=== PATIENT | female | born 1970 | race American Indian/Alaskan Native ===

== ENCOUNTER 2019-09-14 08:52 | Outpatient (CLI) | payer MEDICARE ==
--- NOTE | 2019-09-19 10:57 | Mammography Report ---
DIGITAL SCREENING MAMMOGRAM WITH CAD, 09/14/2019 INDICATION: Routine screening mammography. TECHNIQUE: Digital bilateral 2D mammography was obtained in the craniocaudal and mediolateral obliq ue projections. This examination was interpreted with the benefit of Computer-Aided Detection analysi s. COMPARISON: 05/05/2015 FINDINGS: Breast Density: The breasts are heterogeneously dense, which may obscure small masses. There is no evidence of dominant mass, suspicious calcifications or architectural distortion in eithe r breast. IMPRESSION: No mammographic evidence of malignancy. Follow up recommendation: Routine yearly BI-RADS Category 1: Negative. A "normal" or negative report should not discourage follow up or biopsy of a clinically significant f inding. A written summary of these findings will be mailed to the patient. The patient will be entered into a mammography reporting system which will generate a reminder letter for the patient's next appointmen t at the appropriate interval. The [employer] recommends yearly mammograms starting at age 40 and continuing as l ofelia as a woman is in good health. Breast MRI is recommended for women with an approximate 20-25% or greater lifetime risk of breast cancer, including women with a strong family history of breast or ova pierre cancer or who have been treated for Hodgkin's disease. Signer Name: Deo Clark MD Signed: 09/19/2019 10:52 AM Workstation Name: [id number]
== END 2019-09-14 08:53 | disposition home or self-care (01) ==
LOC: SPVWC 08:52
PROVIDERS: ATTEND Family Medicine
DX: Z12.31 Encounter for screening mammogram for malignant neoplasm of breast (principal)
CPT/HCPCS: 77067

== ENCOUNTER 2020-10-08 10:18 | Outpatient (CLI) | payer MEDICARE, MEDICAID ==
--- NOTE | 2020-10-08 15:37 | Cat Scan Report ---
CT ABDOMEN AND PELVIS WITH CONTRAST HISTORY: MYCOSIS FUNGOIDES,EXTRANODAL AND SOLID ORGAN SITES COMPARISON: None. TECHNIQUE: Axial CT images were obtained through the abdomen and pelvis after 100 cc of IV contrast. Sagittal and coronal reformatted images. All CT scans at this location are performed using CT dose re duction for ALARA by means of automated exposure control. FINDINGS: CT ABDOMEN: Lung Bases: Clear. Liver: No significant abnormality. Biliary: Gallbladder is surgically absent. Spleen: No significant abnormality. Unenlarged. Pancreas: No significant abnormality. Adrenals: No significant abnormality. Kidneys: No significant abnormality. Lymphatics: No lymphadenopathy. Vasculature: No significant abnormality. Bowel/Peritoneum: Previous surgical changes are noted in the proximal stomach, correlate with history . There is no evidence for bowel obstruction, focal inflammation, free fluid or free air. The appendi x is not confidently identified. CT PELVIS: : Hysterectomy changes are suspected. No adnexal abnormality. The bladder and distal ureters are un remarkable. Osseous Structures: Mild lumbar spondylosis. No suspicious bony lesion. Additional Findings: None IMPRESSION: No significant abnormality. Signer Name: Derek Hung Jr, MD Signed: 10/08/2020 3:32 PM Workstation Name: [id number]
--- NOTE | 2020-10-08 16:15 | Cat Scan Report ---
CT NECK WITH CONTRAST HISTORY: Enlarged lymph nodes. COMPARISON: None. TECHNIQUE: Routine CT of the neck is performed following intravenous contrast. All CT scans at this [facility] are performed using CT dose reduction for ALARA by means of automated exposure control. CONTRAST: 100 mL Omnipaque 300 FINDINGS: Skull Base: No significant abnormality. Parotid, Carotid, Retropharyngeal, Prevertebral, Pharyngeal Mucosal, and Nut Picker Spaces: No abnorm al mass, enhancing lesion or other significant abnormality. Airway: Patent and without significant abnormality. Lymphatics: No lymphadenopathy. Vasculature: No significant abnormality. Osseous Structures: No significant abnormality Additional findings: None. IMPRESSION: 1. No adenopathy or mass identified in the neck. Signer Name: Odilon Carreon MD Signed: 10/08/2020 4:11 PM Workstation Name: [id number]
--- NOTE | 2020-10-08 16:30 | Cat Scan Report ---
CT chest w con INDICATION: Mycosis fungoides. TECHNIQUE: All CT scans at this location are performed using the following dose modulation technique: Automated exposure control. Helical slices were obtained through the chest. 100 cc of Omnipaque 300 is administ ered. COMPARISON: PET CT scan dated 05/15/2015 FINDINGS: Chest: No pulmonary nodules or masses are seen. There is minimal dependent atelectasis. On review of mediastinum, there is no adenopathy. Thoracic aorta is normal in diameter. The heart size is normal. On review of bone windows, no acute osseous abnormalities are seen. IMPRESSION: 1. No pulmonary nodules or masses are seen. No adenopathy is seen. Signer Name: Enmanuel Jeronimo MD Signed: 10/08/2020 4:25 PM Workstation Name: [id number]
== END 2020-10-08 10:19 | disposition home or self-care (01) ==
LOC: CT 10:18
PROVIDERS: ATTEND Internal Medicine Hematology & Oncology
DX: C84.09 Mycosis fungoides, extranodal and solid organ sites (principal); C85.89 Other specified types of non-Hodgkin lymphoma, extranodal and solid organ sites; J98.11 Atelectasis; M47.816 Spondylosis without myelopathy or radiculopathy, lumbar region; Z90.49 Acquired absence of other specified parts of digestive tract; Z90.710 Acquired absence of both cervix and uterus
CPT/HCPCS: 70491; 71260; 74177; Q9967

== ENCOUNTER 2020-10-09 10:12 | Outpatient (CLI) | payer MEDICARE ==
--- NOTE | 2020-10-09 11:05 | Mammography Report ---
DIGITAL SCREENING MAMMOGRAM WITH CAD, 10/09/2020 CLINICAL INFORMATION / INDICATION: Routine screening mammography. SCREENING MAMMO TECHNIQUE: Digital bilateral 2D mammography was obtained in the craniocaudal and mediolateral obliqu e projections. This examination was interpreted with the benefit of Computer-Aided Detection analysis . COMPARISON: 09/14/2019, 05/15/2015 FINDINGS: Breast Density: There are scattered areas of fibroglandular density. No dominant mass, suspicious calcifications, or architectural distortion in either breast. Architectural changes from bilateral breast reduction are again noted. IMPRESSION: No mammographic evidence of malignancy. Follow up recommendation: Routine yearly BI-RADS Category 2: Benign. A "normal" or negative report should not discourage follow up or biopsy of a clinically significant f inding. A written summary of these findings will be mailed to the patient. The patient will be entered into a mammography reporting system which will generate a reminder letter for the patient's next appointmen t at the appropriate interval. The [employer] recommends yearly mammograms starting at age 40 and continuing as l ofelia as a woman is in good health. Breast MRI is recommended for women with an approximate 20-25% or greater lifetime risk of breast cancer, including women with a strong family history of breast or ova pierre cancer or who have been treated for Hodgkin's disease. Signer Name: Cher Hobson MD Signed: 10/09/2020 11:01 AM Workstation Name: [id number]
== END 2020-10-09 10:13 | disposition home or self-care (01) ==
LOC: SPVWC 10:12
PROVIDERS: ATTEND Family Medicine
DX: Z12.31 Encounter for screening mammogram for malignant neoplasm of breast (principal)
CPT/HCPCS: 77067